=== PATIENT | female | born 1960 | race Caucasian/White ===

== ENCOUNTER 2022-10-23 16:44 | Emergency (ER) | payer OTHER, MEDICAID, SELFPAY ==
[2022-10-23] VITALS (12 sets, daily range): BP systolic 98–150; BP diastolic 59–92; PULSE 90–101; RESP 11–24; TEMP 36.9; O2SAT 95–100; BMI 24.6
--- NOTE | 2022-10-23 17:01 | DI.RAD.S_ITS ---
PROCEDURE: XR CHEST 1V INDICATIONS: chest pain TECHNIQUE: One view of the chest was acquired. COMPARISON: None. FINDINGS: Surgical changes and devices: None. Lungs and pleura: Lungs are clear. No pleural effusions or pneumothorax. Mediastinum: Mediastinal contours appear normal. Heart size is normal. Bones and chest wall: No suspicious bony lesions. Overlying soft tissues appear unremarkable. IMPRESSION: No acute cardiopulmonary disease. Dictated by: June Sellers M.D. on 10/23/2022 at 16:58 Approved by: June Sellers M.D. on 10/23/2022 at 16:59
[2022-10-23 17:17] LABS: Add Manual Diff / Slide Review NO; Basophils Absolute Auto 100 /uL (0-100); Basophils Percent Auto 0.6 % (0-2); Eosinophils Absolute Auto 200 /uL (0-450); Eosinophils Percent Auto 1.5 % (2-4); Hematocrit 36.3 % (36-46); Hemoglobin 12.4 g/dL (12.0-16.0); Lymphocytes Absolute Auto 2100 /uL (1100-4500); Lymphocytes Percent Auto 16.1 % (25-40); Mean Corpuscular HGB Conc 34.2 % (30-36); Mean Corpuscular Hemoglobin 31.6 PG (26-34); Mean Corpuscular Volume 92.5 fL (80-100); Monocytes Absolute Auto 1000 /uL (0-900); Monocytes Percent Auto 7.5 % (3-14); Neutrophils Absolute Auto 9600 /uL (1500-7000); Neutrophils Percent Auto 74.3 % (50-75); Platelet Count 418 X10^3/uL (150-400); Red Blood Cell Count 3.93 X10^6/uL (4.0-5.2); Red Cell Distribution Width 12.3 % (11.6-14.8); White Blood Cell Count 12.9 X10^3/uL (4.5-11.0)
[2022-10-23] MEDS: ASPIRIN 81 MG CHEW TAB 324 MG PO (17:25)
[2022-10-23 17:27] LABS: INR 1.1 (0.9-1.3); Prothrombin Time 12.8 SECONDS (10.1-12.7)
[2022-10-23 17:30] LABS: Alanine Aminotransferase 23 IU/L (<35); Albumin 4.4 g/dL (3.5-5.0); Albumin Globulin Ratio 1.2 (1.0-2.8); Alkaline Phosphatase 115 U/L (38-126); Aspartate Aminotransferase 25 IU/L (14-36); BUN Creatinine Ratio 18.2 (6-22); Bilirubin Total 0.4 mg/dL (0.2-1.3); Blood Urea Nitrogen 12 mg/dL (7-17); Calcium 9.9 mg/dL (8.4-10.2); Carbon Dioxide 26 mmol/L (22-32); Chloride 100 mmol/L (98-107); Creatine Kinase 32 U/L (30-135); Estimated Glomerular Filt Rate > 60 mL/min (>60); Globulin 3.8 g/dL (1.7-4.1); Glucose 113 mg/dL (80-110); HEMOLYSIS < 15 (0-50); Lipase 35 U/L (23-300); Magnesium 1.8 mg/dL (1.6-2.3); PTT Partial Thromboplastin Tim 30 SECONDS (26-36); Potassium 3.9 mmol/L (3.4-5.1); Sodium 137 mmol/L (137-145); Total Protein 8.2 g/dL (6.3-8.2)
[2022-10-23 17:42] LABS: Troponin I < 0.012 ng/mL (0.01-0.034)
--- NOTE | 2022-10-23 18:52 | ED_ITS ---
HPI - Chest Pain General Chief Complaint: Chest Pain Stated Complaint: chest tightness/back spasm/left arm pain Time Seen by Provider: 10/23/22 16:55 Source: patient Mode of arrival: Ambulatory Limitations: no limitations History of Present Illness HPI narrative: 62-year-old female smoker without chronic medical history presents with family in the chief complaint of ongoing back spasms for the past 30 days. She denies any specific injury or overuse. She states it started in her low back and has worked its way up and is now behind both shoulders and in between her shoulder blades. She states she has difficulty sleeping because she spasms and has pain in any position. Her pain is made worse with motion of her torso and use of either arm. She denies systemic complaints such as dizziness, weakness or lig htheadedness. She denies chest pain, heaviness or squeezing. She denies any shortness of breath or cough. She is had no nausea, vomiting or diarrhea. She denies extremity numbness, tingling or weakness. Related Data Previous Rx's Medication Instructions Recorded cyclobenzaprine 10 mg tablet 10 mg PO TID PRN muscle spasm #14 10/23/22 tabs lidocaine 5 % topical patch 1 patch topical DAILY #15 ea 10/23/22 (Lidoderm) Allergies Allergy/AdvReac Type Severity Reaction Status Date / Time No Known Drug Allergies Allergy Unverified 10/23/22 16:28 Review of Systems Review of Systems Narrative: GENERAL: Denies chills, fatigue, malaise, fever, sweats. HEENT: Denies sinus pain, ear pain, sore throat, difficulty swallowing, dizziness. RESPIRATORY: Denies dyspnea, cough, wheezing, hemoptysis, sputum. CARDIOVASCULAR: Denies chest pain, palpitations, orthopnea, edema, GASTROINTESTINAL: Denies nausea, vomiting, abdominal pain, diarrhea, constipation, melena. : Denies dysuria, frequency, incontinence, hematuria, urinary retention. MUSCULOSKELETAL:see HPI SKIN: Denies rash, skin lesions, or other NEUROLOGIC: Denies weakness, headache, numbness, change in speech, confusion, seizures, incoordination. PSYCHIATRIC: No concerning psychosocial issues. 12 point review of systems is negative except for those stated above Patient History Social History Smoking Status: Current some day smoker Smoking Status: Current some day smoker tobacco type: cigarettes alcohol intake frequency: holidays/special occasions only Substance Use Type: marijuana Exam Narrative Exam Narrative: GENERAL: [62] year old patient appears stated age. Well-developed patient, in mild distress. HEAD: Atraumatic. Normocephalic. EYES: Pupils equal round and reactive. Extraocular motions intact. No scleral icterus. No injection or drainage. ENT: Nose without bleeding, purulent drainage. Throat without erythema, tonsillar hypertrophy or exudate. Airway patent. NECK: Trachea midline. Non tender CARDIOVASCULAR: Regular rate and rhythm without murmurs, gallops, or rubs. RESPIRATORY: Clear to auscultation. Breath sounds equal bilaterally. No wheezes, rales, or rhonchi. GASTROINTESTINAL: Abdomen soft, non-tender, nondistended. EXTREMITIES: No edema or joint tenderness. BACK: Paraspinal muscle spasms no midline tenderness NEURO: AOx3. SKIN: No rash or erythema of visible areas Initial Vital Signs Initial Vital Signs: Vital Signs Temperature 98.4 F 10/23/22 16:53 Pulse Rate 98 H 10/23/22 16:53 Respiratory Rate 20 10/23/22 16:53 Blood Pressure 117/75 10/23/22 16:53 Pulse Oximetry 100 10/23/22 16:53 Oxygen Delivery Method Room Air 10/23/22 16:53 Course Orders Ordered: Discontinued Medications Aspirin (Aspirin 81 Mg Chew Tab) 324 mg PO NOW ONE Stop: 10/23/22 17:02 Last Admin: 10/23/22 17:25 Dose: 324 mg Documented By: WILLIE Cyclobenzaprine HCl (Cyclobenzaprine 10 Mg Prepack) 1 bottle [facility] [place] SEEIN[facility] ONE Stop: 10/23/22 18:53 Last Admin: 10/23/22 19:13 Dose: 1 bottle Documented By: WILLIE Lidocaine (Lidocaine Patch 1 Each Adh..Patch) 1 each TOP NOW ONE Stop: 10/23/22 18:53 Last Admin: 10/23/22 19:13 Dose: 1 each Documented By: WILLIE Vital Signs Vital signs: Vital Signs - 8 hr 10/23/22 16:53 10/23/22 17:02 10/23/22 17:04 Temperature 98.4 F Pulse Rate 98 H 101 H Respiratory Rate 20 Blood Pressure 117/75 123/72 Pulse Oximetry 100 99 Oxygen Delivery Method Room Air 10/23/22 17:04 10/23/22 17:15 10/23/22 17:30 Temperature Pulse Rate 98 H 98 H Respiratory Rate 15 24 Blood Pressure 122/59 L Pulse Oximetry 99 98 Oxygen Delivery Method 10/23/22 17:30 10/23/22 17:45 10/23/22 18:00 Temperature Pulse Rate 100 H 97 H 95 H Respiratory Rate 20 22 Blood Pressure Pulse Oximetry 98 97 96 Oxygen Delivery Method 10/23/22 18:01 10/23/22 18:01 10/23/22 18:15 Temperature Pulse Rate 92 H 92 H Respiratory Rate 18 Blood Pressure 150/92 H Pulse Oximetry 95 96 Oxygen Delivery Method MDM - Chest Pain Lab Data 10/23/22 17:10 10/23/22 17:10 Labs: Lab Results 10/23/22 10/23/22 10/23/22 Range/Units 17:10 17:10 17:10 WBC 12.9 H (4.5-11.0) X10^3/uL RBC 3.93 L (4.0-5.2) X10^6/uL Hgb 12.4 (12.0-16.0) g/dL Hct 36.3 (36-46) % MCV 92.5 (80-100) fL MCH 31.6 (26-34) PG MCHC 34.2 (30-36) % RDW 12.3 (11.6-14.8) % Plt Count 418 H (150-400) X10^3/uL Neut % (Auto) 74.3 (50-75) % Lymph % (Auto) 16.1 L (25-40) % [place] % (Auto) 7.5 (3-14) % Eos % (Auto) 1.5 L (2-4) % Baso % (Auto) 0.6 (0-2) % Neut # (Auto) 9600 H (3464-7081) /uL Lymph # (Auto) 2100 (2385-0277) /uL [place] # (Auto) 1000 H (0-900) /uL Eos # (Auto) 200 (0-450) /uL Baso # (Auto) 100 (0-100) /uL PT 12.8 H (10.1-12.7) SECONDS INR 1.1 (0.9-1.3) APTT 30 (26-36) SECONDS Sodium 137 (137-145) mmol/L Potassium 3.9 (3.4-5.1) mmol/L Chloride 100 (98-107) mmol/L Carbon Dioxide 26 (22-32) mmol/L BUN 12 (7-17) mg/dL Creatinine 0.66 (0.52-1.04) mg/dL Estimated GFR > 60 (>60) mL/min BUN/Creatinine Ratio 18.2 (6-22) Glucose 113 H (80-110) mg/dL Calcium 9.9 (8.4-10.2) mg/dL Magnesium 1.8 (1.6-2.3) mg/dL Total Bilirubin 0.4 (0.2-1.3) mg/dL AST 25 (14-36) IU/L ALT 23 (<35) IU/L Alkaline Phosphatase 115 (38-126) U/L Total Creatine Kinase 32 (30-135) U/L CK-MB (CK-2) TNP CK-MB (CK-2) Rel Index TNP Troponin I < 0.012 (0.01-0.034) ng/mL Total Protein 8.2 (6.3-8.2) g/dL Albumin 4.4 (3.5-5.0) g/dL Globulin 3.8 (1.7-4.1) g/dL Albumin/Globulin Ratio 1.2 (1.0-2.8) Lipase 35 (23-300) U/L [facility] Narrative Medical decision making narrative: [62] year old patient presents with painful back spasms Multiple etiologies for patient's symptoms considered including, but not limited to: [Muscle spasm, electrolyte abnormality, cardiac versus other] Prior Charts reviewed in our EMR Primary Historian: patient Labs reviewed and interpreted by myself: No significant abnormalities requiring specific intervention Imaging reviewed: Chest x-ray demonstrates no acute process Patient has reassuring history and physical exam, labs and EKG are unremarkable, reproducible pain on palpation of musculature of her back, no midline tenderness, no signs of cauda equina. Patient has been using CBD topical which helps briefly. Findings and discharge diagnosis discussed with patient/family followed by verbalization of understanding Return precautions discussed with patient/family whom verbalize understanding of diagnosis and plan Discharge Plan Departure Patient Disposition: Home Clinical Impression: Spasm of thoracic back muscle Instructions: DI for Back Spasm Activity Restrictions/Additional Instructions: *You have been diagnosed with [back pain related to muscle spasms. As we discussed your history and physical exam as well as labs, EKG are very reassuring and there is no evidence of heart attack or other severe diagnosis that requires a specific or immediate intervention] *What to do: *Please continue to take your regular medications as directed. [x ] New medication prescriptions sent to your pharmacy: [[facility] in [place] ] [ ] New medication written as a paper prescription [ ] No new medications given *Please follow up with your primary care provider in 2-3 days, call for an appointment. Let them know you were seen in the Emergency Department and that we ask that you be seen in follow up. We will electronically transmit a record of today's note if your PCP is in our system *If you do not have a primary care provider please contact the [facility] Resource line at [phone]. They will ask some questions about your medical history and help get you set up with a doctor in the community. *Return to Emergency Department if you should have any new, worsening or concerning symptoms, such as [fever greater than 101 F, shaking chills, worsening pain, persistent vomiting or other bothersome symptoms] Prescriptions: New cyclobenzaprine 10 mg tablet 10 mg PO TID PRN (Reason: muscle spasm) Qty: 14 0RF lidocaine [Lidoderm] 5 % adhesive patch,medicated 1 patch TOP DAILY Qty: 15 0RF Rx Instructions: leave on most painful area for 12 hrs Referrals: Miscellaneous,Doctor, MD [Primary Care Provider] - Stand Alone Forms: Patient Portal/API
[2022-10-23] MEDS: LIDOCAINE PATCH 1 EACH ADH..PATCH TOP (19:13)
[2022-10-23] MEDS: CYCLOBENZAPRINE 10 MG PREPACK 1 BOTTLE MISC (19:13)
== END 2022-10-23 19:23 | disposition home or self-care (01) ==
PROVIDERS: Emergency Provider Emergency Medicine
DX: M62.830 Muscle spasm of back (principal); R03.0 Elevated blood-pressure reading, without diagnosis of hypertension
CPT/HCPCS: 36415; 71045; 80053; 82550; 83690; 83735; 84484; 85025; 85610; 85730; 93005; 93010; 99284